=== PATIENT | male | born 1995 | race Caucasian/White ===

== ENCOUNTER → 2019-06-04 | Outpatient (CLI) | payer OTHER | LOC: MHCPAIN 11:28 | DX: M47.26 Other spondylosis with radiculopathy, lumbar region (principal); M53.3 Sacrococcygeal disorders, not elsewhere classified; M96.1 Postlaminectomy syndrome, not elsewhere classified; G89.29 Other chronic pain | CPT/HCPCS: G0463 ==

== ENCOUNTER → 2019-08-08 | Outpatient (CLI) | payer OTHER | LOC: MHCPAIN 12:52 | DX: M47.817 Spondylosis without myelopathy or radiculopathy, lumbosacral region (principal); M53.3 Sacrococcygeal disorders, not elsewhere classified; M96.1 Postlaminectomy syndrome, not elsewhere classified; M54.16 Radiculopathy, lumbar region; G89.29 Other chronic pain | CPT/HCPCS: G0463; J1100; Q9967 ==

== ENCOUNTER → 2019-08-19 | Outpatient (CLI) | payer OTHER | LOC: MHCPAIN 15:13 | DX: M47.817 Spondylosis without myelopathy or radiculopathy, lumbosacral region (principal); M54.5 Low back pain; M54.16 Radiculopathy, lumbar region; M96.1 Postlaminectomy syndrome, not elsewhere classified; M53.3 Sacrococcygeal disorders, not elsewhere classified | CPT/HCPCS: G0463 ==

== ENCOUNTER → 2019-08-29 | Outpatient (CLI) | payer OTHER | LOC: MHCPAIN 14:49 | DX: M47.817 Spondylosis without myelopathy or radiculopathy, lumbosacral region (principal); M53.3 Sacrococcygeal disorders, not elsewhere classified; G89.29 Other chronic pain; M54.16 Radiculopathy, lumbar region | CPT/HCPCS: J1100; Q9967 ==

== ENCOUNTER → 2019-09-10 | Outpatient (CLI) | payer OTHER | LOC: MHCPAIN 10:22 | DX: M47.817 Spondylosis without myelopathy or radiculopathy, lumbosacral region (principal); M54.5 Low back pain; M53.3 Sacrococcygeal disorders, not elsewhere classified; G89.29 Other chronic pain | CPT/HCPCS: G0463 ==

== ENCOUNTER → 2019-09-19 | Outpatient (CLI) | payer OTHER | LOC: MHCPAIN 10:56 | DX: M47.817 Spondylosis without myelopathy or radiculopathy, lumbosacral region (principal); M54.5 Low back pain; M53.3 Sacrococcygeal disorders, not elsewhere classified | CPT/HCPCS: J1100; Q9967 ==

== ENCOUNTER → 2019-10-02 | Outpatient (CLI) | payer OTHER | LOC: MHCPAIN 12:34 | DX: M54.16 Radiculopathy, lumbar region (principal); M53.3 Sacrococcygeal disorders, not elsewhere classified; M96.1 Postlaminectomy syndrome, not elsewhere classified; G89.29 Other chronic pain | CPT/HCPCS: G0463 ==

== ENCOUNTER → 2019-10-22 | Outpatient (CLI) | payer OTHER | LOC: MHCPAIN 11:00 | DX: M47.817 Spondylosis without myelopathy or radiculopathy, lumbosacral region (principal); M53.3 Sacrococcygeal disorders, not elsewhere classified; G89.29 Other chronic pain; M96.1 Postlaminectomy syndrome, not elsewhere classified; M54.5 Low back pain | CPT/HCPCS: G0463 ==

== ENCOUNTER → 2019-11-04 | Outpatient (CLI) | payer OTHER | LOC: MHCPAIN 12:44 | DX: M47.817 Spondylosis without myelopathy or radiculopathy, lumbosacral region (principal); M54.5 Low back pain; M53.3 Sacrococcygeal disorders, not elsewhere classified ==

== ENCOUNTER → 2019-11-13 | Outpatient (CLI) | payer OTHER | LOC: MHCPAIN 12:27 | DX: M47.817 Spondylosis without myelopathy or radiculopathy, lumbosacral region (principal); M54.5 Low back pain; M96.1 Postlaminectomy syndrome, not elsewhere classified; G89.29 Other chronic pain | CPT/HCPCS: G0463 ==

== ENCOUNTER → 2019-11-14 | Outpatient (CLI) | payer OTHER | LOC: MHCPAIN 14:29 | DX: M47.817 Spondylosis without myelopathy or radiculopathy, lumbosacral region (principal); M54.5 Low back pain ==

== ENCOUNTER → 2019-11-28 | Outpatient (CLI) | payer OTHER | LOC: MHCPAIN 09:50 | DX: M47.817 Spondylosis without myelopathy or radiculopathy, lumbosacral region (principal); M96.1 Postlaminectomy syndrome, not elsewhere classified; M53.3 Sacrococcygeal disorders, not elsewhere classified; M54.5 Low back pain; G89.29 Other chronic pain | CPT/HCPCS: G0463; J1040; J1100; J2250; J3010 ==

== ENCOUNTER → 2020-02-04 | Outpatient (CLI) | payer OTHER | LOC: MHCPAIN 12:35 | DX: M47.817 Spondylosis without myelopathy or radiculopathy, lumbosacral region (principal); M96.1 Postlaminectomy syndrome, not elsewhere classified; M53.3 Sacrococcygeal disorders, not elsewhere classified; M54.5 Low back pain | CPT/HCPCS: G0463 ==

== ENCOUNTER → 2021-09-07 | Outpatient (CLI) | payer OTHER | LOC: MHCPAIN 12:32 | DX: M53.3 Sacrococcygeal disorders, not elsewhere classified (principal); M96.1 Postlaminectomy syndrome, not elsewhere classified; M54.50 Low back pain, unspecified | CPT/HCPCS: G0463 ==